=== PATIENT | female | born 1995 | race Caucasian/White ===

== ENCOUNTER 2016-08-11 20:25 | Emergency (ER) | payer OTHER ==
[2016-08-11] MEDS ORDERED: Diph,Pert(Acell),Tet Vac 0.5 ML SYR IM ONE (20:36)
[2016-08-11] MEDS ORDERED: AMOXICILLIN/POTASSIUM CLAV 875MG/125MG TABLET PO ONE ×2 (20:36→21:59)
--- NOTE | 2016-08-11 20:41 | Emergency Department Record ---
History of Present Illness - General Chief Complaint: Animal Bite Stated Complaint: DOG BITE Time Seen by Provider: 08/11/16 20:35 Source: Patient Mode of Arrival: Ambulatory Limitations: No limitations - History of Present Illness Initial Comments: 21 yo female presents after a dog bite to the left hand. The patient has one puncture medial thumb between the MCP and IP. She has pain and swelling. She is unsure when the last tetanus shot was performed. She is otherwise healthy. She was breaking up her dog from another dog that were fighting. Both dogs are known and healthy to her knowledge. MD Complaint: Animal bite -: Minutes(s) (less than one hour) Left: Hand Animal: Dog Description: Household pet - Related Data Previous Rx's Medication Instructions Recorded Amoxicillin/Potassium Clav 1 tab PO BID #20 tab 08/11/16 [Augmentin 875-125 Tablet] Hydrocodone/Acetaminophen [[place] 0.5 - 1 tab PO TID PRN #12 tab 08/11/16 5mg/325mg] Allergies Allergy/AdvReac Type Severity Reaction Status Date / Time No Known Drug Allergies Allergy Verified 08/11/16 20:31 Review of Systems Constitutional: Denies: Chills, Fever, Malaise Eyes: Denies: Eye discharge ENT: Denies: Congestion, Throat pain Respiratory: Denies: Cough Cardiovascular: Denies: Chest pain, Syncope Endocrine: Denies: Fatigue Gastrointestinal: Denies: Abdominal pain, Diarrhea, Nausea, Vomiting Genitourinary: Denies: Dysuria, Urgency Musculoskeletal: Reports: Arthralgia Skin: Denies: Bruising, Change in color Neurological: Denies: Headache Psychiatric: Denies: Anxiety Hematological/Lymphatic: Denies: Blood Clots, Easy bleeding, Easy bruising, Swollen glands Past Medical History - SOCIAL HISTORY Smoking Status: Never smoker Alcohol Use: None Drug Use: None - RESPIRATORY Hx Respiratory Disorders: No - CARDIOVASCULAR Hx Cardio Disorders: No - NEURO Hx Neuro Disorders: No - GI Hx GI Disorders: No - Hx Genitourinary Disorders: No - ENDOCRINE Hx Endocrine Disorders: No - MUSCULOSKELETAL Hx Musculoskeletal Disorders: No - PSYCH Hx Psych Problems: No - HEMATOLOGY/ONCOLOGY Hx Hematology/Oncology Disorders: No Family Medical History Any Significant Family History?: No Family Hx Comment (NOT TO BE USED IN PLACE OF ITEMS BELOW): denies Physical Exam - General General Appearance: Alert, Oriented x3, Cooperative, No acute distress Limitations: No limitations - Head Head exam: Atraumatic, Normal inspection - Eye Eye exam: Normal appearance - ENT ENT exam: Normal exam Ear exam: Normal external inspection Nasal Exam: Normal inspection Mouth exam: Normal external inspection Teeth exam: Normal inspection - Neck Neck exam: Normal inspection - Cardiovascular Cardiovascular Exam: Regular rate, Normal rhythm, Normal heart sounds Peripheral Pulses: 2+: Radial (L) - Rectal Rectal exam: Deferred - exam: Deferred - Extremities Extremities exam: Full ROM, Joint swelling, Normal capillary refill, Tenderness. negative: Normal inspection Image of Hand: 1 - small puncture to the inner left thumb, mild swelling, ROM intact but painful, 2 - small abrasion - Neurological Neurological exam: Alert, Normal gait, Oriented X3, Reflexes normal - Psychiatric Psychiatric exam: Normal affect, Normal mood - Skin Skin exam: Dry, Intact, Normal color, Warm Course Vital Signs 08/11/16 20:31 Temperature 98.3 F Pulse Rate [ 86 Pulse Ox Probe] Respiratory 20 Rate Blood Pressure 140/76 [Left Arm] Pulse Ox 100 - Reevaluation(s) Reevaluation #1: The patient was seen and examined The wound will be soaked an irrigated Antibiotics given Tdap ordered XR ordered. 08/11/16 20:41 Reevaluation #2: the XR was read as negative 08/11/16 21:20 Reevaluation #3: The puncture wound was copious irrigated with NS We discussed 24-48 hour recheck if there are any concerns about infection We discussed high risks of infection in animal bites She was given antibiotics in the ED She will be splinted for comfort and protection of the area as well 08/11/16 21:57 08/11/16 22:00 Disposition Disposition: Discharge Clinical Impression: Dog bite of left thumb Qualifiers: Encounter type: initial encounter Qualified Code(s): S61.052A - Open bite of left thumb without damage to nail, initial encounter; W54.0XXA - Bitten by dog, initial encounter Disposition: Home, Self-Care Condition: (1) Good Instructions: Animal Bite (ED) Additional Instructions: Return in 48 hours for a recheck of you bite Return sooner if you have pain, redness, pus, drainage or any new concerns Prescriptions: Amoxicillin/Potassium Clav [Augmentin 875-125 Tablet] 1 tab PO BID #20 tab Hydrocodone/Acetaminophen [[place] 5mg/325mg] 0.5 - 1 tab PO TID PRN #12 tab PRN Reason: Pain - General Forms: Patient Portal Access Time of Disposition: 21:59
[2016-08-11] MEDS ORDERED: IBUPROFEN 600 MG TABLET PO ONE (21:59)
[2016-08-11] MEDS ORDERED: HYDROCODONE/APAP 5/325MG TABLET PO ONE (21:59)
== END 2016-08-11 22:09 | disposition home or self-care (01) ==
LOC: ER 20:25
DX: S61.032A Puncture wound without foreign body of left thumb without damage to nail, initial encounter (principal); W54.0XXA Bitten by dog, initial encounter
CPT/HCPCS: 90715; 96372; 99283